=== PATIENT | female | born 1975 | race Two or more races ===

== ENCOUNTER 2018-02-28 11:47 | Emergency (ER) | payer SELFPAY ==
[2018-02-28 12:29] LABS: URINE HCG POC HCG NEGATIVE (Negative)
[2018-02-28 12:31] LABS: BASO # 0.1 x10^3/uL (0.0-0.2); BASO % 1 % (0-3); EOS % 0 % (0-3); HEMATOCRIT 39.1 % (36.0-47.0); HEMOGLOBIN 13.5 g/dL (12.0-15.5); LYMPH # 1.3 x10^3/uL (1.0-4.8); LYMPH % 10 % (24-48); MEAN CORPUSCULAR HEMOGLOBIN 30 pg (25-35); MEAN CORPUSCULAR HGB CONC 35 g/dL (31-37); MEAN CORPUSCULAR VOLUME 86 fL (79-100); MONO # 0.4 x10^3/uL (0.0-1.1); MONO % 3 % (0-9); NEUT # 11.5 x10^3uL (1.8-7.7); NEUT % 87 % (31-73); PLATELET COUNT 278 x10^3/uL (140-400); RED BLOOD COUNT 4.54 x10^6/uL (3.50-5.40); RED CELL DISTRIBUTION WIDTH 15.1 % (11.5-14.5); WHITE BLOOD COUNT 13.2 x10^3/uL (4.0-11.0)
[2018-02-28 12:32] LABS: ADD MAN DIFF? YES
[2018-02-28 12:34] LABS: BILIRUBIN,URINE SMALL (NEG); CLARITY,URINE CLEAR; COLOR,URINE AMBER; GLUCOSE,URINE NEGATIVE (NEG); NITRITE,URINE NEGATIVE (NEG); PH,URINE 6.5; PROTEIN,URINE 30 mg/dL (NEG-TRACE); UROBILINOGEN,URINE 0.2 mg/dL (0.2 mg/dL)
[2018-02-28 12:38] LABS: ANION GAP 10 (6-14); BLOOD UREA NITROGEN 12 mg/dL (7-20); BUN/CREATININE RATIO 17 (6-20); CARBON DIOXIDE 24 mmol/L (21-32); CHLORIDE 104 mmol/L (98-107); CREATININE 0.7 mg/dL (0.6-1.0); GFR 92.2; GLUCOSE 124 mg/dL (70-99); POTASSIUM 4.3 mmol/L (3.5-5.1); SODIUM 138 mmol/L (136-145)
[2018-02-28 12:42] LABS: BACTERIA,URINE MODERATE /HPF (0-FEW); HYALINE CASTS, URINE OCCASIONAL /HPF; SQUAMOUS EPITHELIAL CELL,UR MOD /LPF
[2018-02-28 12:44] LABS: ALBUMIN 3.7 g/dL (3.4-5.0); ALBUMIN/GLOBULIN RATIO 0.9 (1.0-1.7); ALK PHOS 88 U/L (46-116); ALT (SGPT) 43 U/L (14-59); AST (SGOT) 13 U/L (15-37); LIPASE 70 U/L (73-393); TOTAL BILIRUBIN 0.4 mg/dL (0.2-1.0); TOTAL PROTEIN 7.8 g/dL (6.4-8.2)
[2018-02-28] MEDS: ONDANSETRON PF 4 MG/2 ML VIAL. IV (12:47)
[2018-02-28] MEDS: IV NORMAL SALINE 1000ML BAG 1,000 ML IV (12:47)
[2018-02-28 12:51] LABS: TROPONINI < 0.017 ng/mL (0.000-0.055)
[2018-02-28 13:08] LABS: % BANDS 3 % (0-9); % BASOS 1 % (0-3); % LYMPHS 7 % (24-48); % MONOS 5 % (0-10); % SEGS 84 % (35-66)
[2018-02-28 13:10] LABS: PLT ESTIMATE ADEQUATE (ADEQUATE)
[2018-02-28 13:11] LABS: POLYCHROMASIA SLIGHT
[2018-02-28] MEDS: IOHEXOL 300 MG/ML 100ML VIAL. IV (13:12)
[2018-02-28] MEDS ORDERED: CONTRAST GIVEN MC (13:15)
== END 2018-02-28 14:42 | disposition home or self-care (01) ==
LOC: ER 11:47
DX: N39.0 Urinary tract infection, site not specified (principal); R11.2 Nausea with vomiting, unspecified; R19.7 Diarrhea, unspecified; R53.1 Weakness
CPT/HCPCS: 36415; 74177; 80053; 81001; 81025; 83690; 84484; 84702; 85007; 85025; 87086; 93005; 96361; 96374; 99285-25; J2405; J7030; Q9967

== ENCOUNTER 2020-04-06 14:49 | Emergency (ER) | payer SELFPAY ==
[~2020-04-06] VITALS: Ht 167.6 cm; Wt 117.0 kg
[~2020-04-06 14:49] MED LIST: CIPR500T94 PO; ONDA4TAB10 SL
[2020-04-06] MEDS ORDERED: ONDANSETRON PF 4 MG/2 ML VIAL. IV ONE (15:30)
[2020-04-06] MEDS ORDERED: KETOROLAC 15 MG/ML VIAL. IV ONE (15:30)
[2020-04-06] MEDS ORDERED: IV NORMAL SALINE 1000ML BAG 1,000 ML IV ONE ×2 (15:30→16:15)
[2020-04-06 15:45] LABS: COLOR,URINE RED
[2020-04-06 15:51] LABS: CLARITY,URINE HAZY
[2020-04-06 15:54] LABS: BACTERIA,URINE MANY /HPF (0-FEW); SQUAMOUS EPITHELIAL CELL,UR MANY /LPF
[2020-04-06 16:08] LABS: BASO % 0 % (0-3); EOS % 0 % (0-3); HEMOGLOBIN 11.9 g/dL (12.0-15.5); LYMPH # 0.6 x10^3/uL (1.0-4.8); LYMPH % 14 % (24-48); MEAN CORPUSCULAR HEMOGLOBIN 31 pg (25-35); MEAN CORPUSCULAR HGB CONC 35 g/dL (31-37); MEAN CORPUSCULAR VOLUME 89 fL (79-100); MONO # 0.2 x10^3/uL (0.0-1.1); MONO % 6 % (0-9); NEUT % 80 % (31-73); PLATELET COUNT 163 x10^3/uL (140-400); RED BLOOD COUNT 3.82 x10^6/uL (3.50-5.40); RED CELL DISTRIBUTION WIDTH 13.9 % (11.5-14.5); WHITE BLOOD COUNT 3.8 x10^3/uL (4.0-11.0)
[2020-04-06] MEDS ORDERED: cefTRIAXone IV Push 1 GM VIAL. IVP ONE (16:15)
[2020-04-06 16:31] LABS: CALCIUM 7.6 mg/dL (8.5-10.1); CREATININE 0.9 mg/dL (0.6-1.0); GFR 68.3; POTASSIUM 3.2 mmol/L (3.5-5.1)
[2020-04-06 16:45] VITALS: BP 118/60
[2020-04-06] MEDS ORDERED: HYDROcodone/APAP 5/325MG 1 TAB TABLET PO ONE (17:00)
[2020-04-06] MEDS ORDERED: CIPR500T94 PO (17:01)
[2020-04-06] MEDS ORDERED: ONDA-84 PO (17:01)
--- NOTE | 2020-04-06 17:02 | PHYS DOC ---
Past Medical History Past Medical History: UTI, Other Additional Past Medical Histor: pre-diabetes Past Surgical History: Cholecystectomy, Other Additional Past Surgical Histo: L. EYE Smoking Status: Never Smoker Alcohol Use: None Drug Use: None General Adult EDM: Chief Complaint: MULTIPLE COMPLAINTS HPI: HPI: Patient is a 45 year old female, accompanied by her daughter, who presents the emergency department with complaints of pain with urination for the last 3 days. Patient also complains of nausea, vomiting, and back pain that began yesterday. She states she has vomited 3 times in the last 24 hours. She denies any hematemesis, hematuria, difficulty urinating, fever, cough, shortness of breath, chest pain, or diarrhea. The patient complains of a headache that started after she was vomiting. She currently rates her pain a 5 out of 10 on a pain scale, she is tried taking Tylenol for the pain with no relief in her discomfort. She denies any radiation of the pain and any exacerbating factors. She reports that her son tested positive for COVID-19 2 weeks ago but they have been practicing quarantine at home and she has not been in close contact with him. Review of Systems: Review of Systems: Complete review of systems negative unless otherwise documented in the HPI Heart Score: Risk Factors: Risk Factors: DM, Current or recent (<one month) smoker, HTN, HLP, family history of CAD, obesity. Risk Scores: Score 0 - 3: 2.5% MACE over next 6 weeks - Discharge Home Score 4 - 6: 20.3% MACE over next 6 weeks - Admit for Clinical Observation Score 7 - 10: 72.7% MACE over next 6 weeks - Early Invasive Strategies Current Medications: Current Medications Medications (Trade) Dose Ordered Sig/[facility] Start Time Stop Time Status Last Admin Dose Admin Ceftriaxone Sodium (Rocephin) 1 gm 1X ONCE 04/06/20 16:15 04/06/20 16:16 DC Ketorolac Tromethamine (Toradol 15mg Vial) 15 mg 1X ONCE 04/06/20 15:30 04/06/20 15:35 DC 04/06/20 16:13 15 MG Ondansetron HCl (Zofran) 4 mg 1X ONCE 04/06/20 15:30 04/06/20 15:35 DC 04/06/20 16:13 4 MG Sodium Chloride 1,000 ml @ 1,000 mls/hr 1X ONCE 04/06/20 16:15 04/06/20 17:14 Cancel Allergies: Allergies: Allergies Coded Allergies Type Severity Reaction Last Updated Verified No Known Drug Allergies 02/28/18 No Physical Exam: PE: Constitutional: Well developed, well nourished, no acute distress, non-toxic appearance, obese. [] HENT: Normocephalic, atraumatic, bilateral external ears normal, oropharynx moist, no oral exudates, nose normal. [] Eyes: PERRLA, EOMI, conjunctiva normal, no discharge. [] Neck: Normal range of motion, no stridor. [] Cardiovascular:Heart rate regular rhythm, no murmur [] Lungs & Thorax: Respirations even and unlabored, no retractions, no respiratory distress Abdomen: Bowel sounds normal, soft, no tenderness Skin: Warm, dry, no erythema, no rash. [] Back: Bilateral CVA tenderness. [] Extremities: No cyanosis, no clubbing, ROM intact, no edema. [] Neurologic: Alert and oriented X 3, no focal deficits noted. [] Psychologic: Affect normal, judgement normal, mood normal. [] Current Patient Data: Labs: Laboratory Tests Test 04/06/20 15:30 04/06/20 15:53 Urine Collection Type Unknown Urine Color Red Urine Clarity Hazy Urine pH (<5.0-8.0) Urine Specific Al[place] (1.000-1.030) Urine Protein mg/dL (NEG-TRACE) Urine Glucose (UA) mg/dL (NEG) Urine Ketones (Stick) mg/dL (NEG) Urine Blood (NEG) Urine Nitrite (NEG) Urine Bilirubin (NEG) Urine Urobilinogen Dipstick mg/dL (0.2 mg/dL) Urine Leukocyte Esterase (NEG) Urine RBC 11-20 /HPF (0-2) Urine WBC 11-20 /HPF (0-4) Urine Squamous Epithelial Cells Many /LPF Urine Bacteria Many /HPF (0-FEW) Urine Mucus Mod /LPF White Blood Count 3.8 x10^3/uL (4.0-11.0) L Red Blood Count 3.82 x10^6/uL (3.50-5.40) Hemoglobin 11.9 g/dL (12.0-15.5) L Hematocrit 34.0 % (36.0-47.0) L Mean Corpuscular Volume 89 fL (79-100) Mean Corpuscular Hemoglobin 31 pg (25-35) Mean Corpuscular Hemoglobin Concent 35 g/dL (31-37) Red Cell Distribution Width 13.9 % (11.5-14.5) Platelet Count 163 x10^3/uL (140-400) Neutrophils (%) (Auto) 80 % (31-73) H Lymphocytes (%) (Auto) 14 % (24-48) L Monocytes (%) (Auto) 6 % (0-9) Eosinophils (%) (Auto) 0 % (0-3) Basophils (%) (Auto) 0 % (0-3) Neutrophils # (Auto) 3.0 x10^3/uL (1.8-7.7) Lymphocytes # (Auto) 0.6 x10^3/uL (1.0-4.8) L Monocytes # (Auto) 0.2 x10^3/uL (0.0-1.1) Eosinophils # (Auto) 0.0 x10^3/uL (0.0-0.7) Basophils # (Auto) 0.0 x10^3/uL (0.0-0.2) Sodium Level 141 mmol/L (136-145) Potassium Level 3.2 mmol/L (3.5-5.1) L Chloride Level 104 mmol/L (98-107) Carbon Dioxide Level 29 mmol/L (21-32) Anion Gap 8 (6-14) Blood Urea Nitrogen 9 mg/dL (7-20) Creatinine 0.9 mg/dL (0.6-1.0) Estimated GFR (Cockcroft-Gault) 68.3 Glucose Level 107 mg/dL (70-99) H Calcium Level 7.6 mg/dL (8.5-10.1) L Laboratory Tests 04/06/20 15:53 Laboratory Tests 04/06/20 15:53 Vital Signs: Vital Signs Date Time Temp Pulse Resp B/P (MAP) Pulse Ox O2 Delivery O2 Flow Rate FiO2 04/06/20 15:55 59 20 121/59 (79) 95 Room Air 04/06/20 14:53 97.8 97.8 EKG: EKG: [] Radiology/Procedures: Radiology/Procedures: [] Course & Med Decision Making: Course & Med Decision Making Pertinent Labs and Imaging studies reviewed. (See chart for details) 45-year-old female presented to the emergency department with complaints of dysuria, headache, pain. [CBC revealed a hemoglobin of 11.9, hematocrit of 34, otherwise unremarkable; BMP revealed a potassium of 3.2, glucose of 107, calcium of 7.6 otherwise unremarkable; urinalysis was concerning for a urinary tract infection with 11-20 red blood cells and 11-20 white blood cells, many bacteria present. The patient was given 1 g of IV Rocephin, 15 mg of Toradol, 4 more milligrams of Zofran, a liter of normal saline, and 1 hydrocodone. She reported feeling better after these medications. Prescription was written for ciprofloxacin 500 mg p.o. twice daily x7 days. The patient was encouraged to take medication as prescribed, increase clear fluids, and avoid bladder irritants. Patient and her daughter verbalized an understanding of home care, medications, follow-up, and return to ED instructions and were in agreement with the plan of care. Rhonda Disclaimer: Rhonda Disclaimer: This electronic medical record was generated, in whole or in part, using a voice recognition dictation system. Departure Departure Impression: Primary Impression: Pyelonephritis Additional Impression: Headache Qualified Codes: R51 - Headache Disposition: 01 HOME, SELF-CARE Condition: STABLE Referrals: UNKNOWN PCP NAME (PCP) Patient Instructions: General Headache Without Cause, [id number], Pyelonephritis, Adult, [id number] Additional Instructions: Fill prescription(s) and use as directed. Avoid bladder irritants such as caff eine, carbonation, and spicy foods. Increase clear fluids. Follow up with your primary care doctor if symptoms persist, return to the ER if symptoms worsen. Scripts Ondansetron Hcl (ONDANSETRON HCL) 4 Mg Tablet 1 TAB PO PRN Q6HRS PRN for NAUSEA/VOMITING for 3 Days, #10 TAB 0 Refills Prov: LEXX CLARKE APRN 04/06/20 Ciprofloxacin Hcl (CIPRO) 500 Mg Tablet 1 TAB PO BID for 7 Days, #14 TAB 0 Refills Prov: LEXX CLARKE APRN 04/06/20 Justicifation of Admission Dx: Justifications for Admission: Justification of Admission Dx: N/A LEXX CLARKE PRODUCT TECHNOLOGY SCIENTIST Apr 06, 2020 17:01
== END 2020-04-06 17:38 | disposition home or self-care (01) ==
LOC: ER 14:49
DX: N12 Tubulo-interstitial nephritis, not specified as acute or chronic (principal); R51 Headache; R11.2 Nausea with vomiting, unspecified; M54.5 Low back pain; R30.9 Painful micturition, unspecified; Z90.49 Acquired absence of other specified parts of digestive tract; Z98.890 Other specified postprocedural states; Z79.899 Other long term (current) drug therapy
CPT/HCPCS: 36415; 80048; 81001; 85025; 87086; 96361; 96374; 96375; 99284; J0696; J1885; J2405; J7030

== ENCOUNTER 2022-01-19 03:39 | Inpatient (IN) | payer SELFPAY ==
[~2022-01-19] VITALS: Ht 165.1 cm; Wt 117.0 kg
[2022-01-19] VITALS (16 sets, daily range): BP systolic 115–146; BP diastolic 57–70
[~2022-01-19 03:39] MED LIST changes: +ONDA-84 PO
[2022-01-19 04:13] LABS: BASO % 1 % (0-3); EOS # 0.1 x10^3/uL (0.0-0.7); EOS % 2 % (0-3); HEMOGLOBIN 11.5 g/dL (12.0-15.5); LYMPH # 1.8 x10^3/uL (1.0-4.8); LYMPH % 23 % (24-48); MEAN CORPUSCULAR HEMOGLOBIN 30 pg (25-35); MEAN CORPUSCULAR HGB CONC 34 g/dL (31-37); MEAN CORPUSCULAR VOLUME 87 fL (79-100); MONO # 0.5 x10^3/uL (0.0-1.1); MONO % 6 % (0-9); NEUT # 5.6 x10^3/uL (1.8-7.7); NEUT % 69 % (31-73); PLATELET COUNT 216 x10^3/uL (140-400); RED BLOOD COUNT 3.91 x10^6/uL (3.50-5.40); RED CELL DISTRIBUTION WIDTH 14.9 % (11.5-14.5); WHITE BLOOD COUNT 8.1 x10^3/uL (4.0-11.0)
[2022-01-19] MEDS ORDERED: MORPHINE SULFATE 2 MG/ML INJ. IVP ONE ×2 (04:15→04:45)
[2022-01-19] MEDS ORDERED: ASPIRIN CHEWABLE 81 MG TABLET. PO ONE (04:15)
[2022-01-19 04:22] LABS: CALCIUM 8.4 mg/dL (8.5-10.1); CREATININE 0.7 mg/dL (0.6-1.0); GFR 90.9; POTASSIUM 3.5 mmol/L (3.5-5.1)
[2022-01-19 04:28] LABS: ALBUMIN 3.4 g/dL (3.4-5.0); ALBUMIN/GLOBULIN RATIO 1.1 (1.0-1.7); TOTAL BILIRUBIN 0.4 mg/dL (0.2-1.0); TOTAL PROTEIN 6.5 g/dL (6.4-8.2)
[2022-01-19] MEDS ORDERED: IOHEXOL 350 MG/ML 100 ML VIAL. IV ONE (04:30)
[2022-01-19] MEDS ORDERED: CONTRAST GIVEN. MC PRN (04:30)
[2022-01-19] MEDS ORDERED: HEPARIN 25,000UTS/250ML PREMIX 250 ML IV PRN (04:45)
[2022-01-19] MEDS ORDERED: IV NORMAL SALINE 1000ML BAG 1,000 ML IV ONE (04:45)
[2022-01-19] MEDS ORDERED: HEPARIN for IV BOLUS 10,000 UNIT/10 ML VIAL. IV ONE (04:45)
[2022-01-19] MEDS ORDERED: HEPARIN for IV BOLUS 10,000 UNIT/10 ML VIAL. IV PRN (04:45)
[2022-01-19] MEDS: NITROGLYCERIN SUBLINGUAL 0.4 MG BOTTLE OF 25. SL PRN ×3 (04:48→05:47)
[2022-01-19 05:05] LABS: PREG TEST PT QUAL NEGATIVE (NEG)
[2022-01-19] MEDS ORDERED: ONDANSETRON PF 4 MG/2 ML VIAL. IVP PRN ×2 (05:30→09:45)
[2022-01-19] MEDS ORDERED: MORPHINE SULFATE 2 MG/ML INJ. IVP PRN (05:30)
[2022-01-19] MEDS ORDERED: NITROGLYCERIN PREMIX 250 ML IV ONE (05:45)
--- NOTE | 2022-01-19 06:00 | RAD ---
CT angiography chest with contrast PQRS statement: CT scans at this facility use dose reduction including either automated exposure cont rol, iterative reconstructions, and /or weight based radiation dosing via mA and kV modification when appropriate to reduce radiation dose to as low as reasonably achievable. HISTORY: Chest pain radiating to the back and upper extremities. Contrast: 100 mL Omnipaque 300 intravenous contrast with 3-D MIP reconstructions of the arteries acqu ired. FINDINGS: Heart size upper limits of normal. Aorta and esophagus are normal. No adenopathy in the avis st. No pulmonary artery emboli. Miniscule dependent pleural effusions along the posterior diaphragms. Trachea and bronchi are normal. There is mild discoid atelectasis at the lung bases. At the right up per lobe there is a 6 mm groundglass nodule image 30. Bones are unremarkable. IMPRESSION: 1. No pulmonary artery emboli. 2. Tiny dependent subcentimeter pleural effusions along the posterior diaphragms, etiology of which i s indeterminate. Similar sized pleural effusions were present on CT abdomen imaging in 2018. 3. 6 mm groundglass pulmonary nodule at the right upper lobe. Per Fleischner guidelines follow-up CT chest imaging in 3-6 months is advised. Electronically signed by: Gabino Connolly MD (01/19/2022 5:58 AM) [facility]USFREDO
--- NOTE | 2022-01-19 06:01 | PHYS DOC ---
Past Medical History Past Medical History: UTI, Other Additional Past Medical Histor: pre-diabetes Past Surgical History: Cholecystectomy Additional Past Surgical Histo: L. EYE Smoking Status: Never Smoker Alcohol Use: None Drug Use: None Adult General Chief Complaint Chief Complaint: CHEST PAIN HPI HPI The patient is a 46-year-old female with a history of hyperlipidemia and morbid obesity. She is a non-smoker and has no known cardiac history. She presents for evaluation of retrosternal nonreproducible chest discomfort with onset at 1 AM, about 2 hours prior to arrival, awakening her from sleep. Discomfort radiates to the interscapular back into the bilateral arms. Severity 8 out of 10 at present. Discomfort is nonexertional nonpleuritic. Nothing seems to make it better or worse. Patient had an episode of identical discomfort 2 weeks ago which she managed at home with Tylenol and for which she did not seek care. This resolved after about a day. Associated nausea without vomiting. No associated fevers, upper respiratory congestion/rhinorrhea, cough, sore throat, shortness of breath, abdominal pain of any kind, flank pain, dysuria, hematuria, polyuria or oliguria, changes in bowel habits, pain or swelling to arms or legs. Patient is alert, pleasantly and appropriately interactive and in no acute distress with appropriate vital signs upon initial evaluation here in the emergency department. Triage EKG is nonischemic. Review of Systems Review of Systems A 12 point review of systems was completed and was negative except where noted in HPI above. Current Medications Current Medications Current Medications Medications (Trade) Dose Ordered Sig/Jyotsna Start Time Stop Time Status Last Admin Dose Admin Aspirin (Aspirin Chewable) 324 mg 1X ONCE 01/19/22 04:15 01/19/22 04:16 DC 01/19/22 04:29 324 MG Info (CONTRAST GIVEN -- Rx MONITORING) 1 each PRN DAILY PRN 01/19/22 04:30 01/21/22 04:29 Iohexol (Omnipaque 350 Mg/ml) 100 ml 1X ONCE 01/19/22 04:30 01/19/22 04:31 DC 01/19/22 05:30 100 ML Morphine Sulfate (Morphine Sulfate) 2 mg 1X ONCE 01/19/22 04:15 01/19/22 04:16 DC 01/19/22 04:29 2 MG Allergies Allergies Allergies Coded Allergies Type Severity Reaction Last Updated Verified No Known Drug Allergies 01/19/22 No Physical Exam Physical Exam 46-year-old female appearing nontoxic and in no acute distress. Head is normocephalic and atraumatic. Neck is supple and nontender. Oropharynx is moist. Lungs are clear to auscultation at all stations. There is normal S1 and S2 without rubs or gallops and capillary refill is appropriate, less than 2 seconds globally. Abdomen is soft, nontender and nondistended without pulsatile mass. Skin is warm and dry without cyanosis, clubbing or edema. Psychiatrically, the patient demonstrates appropriate mood and affect and is alert. Evaluation of the extremities reveals BUEs and BLEs neurovascularly intact distally with strength 5 out of 5, sensation intact light touch in all nerve distributions, radial, DP and PT pulses 2+ and equal bilaterally, capillary refill less than 2 seconds, hands and feet warm and well-perfused. No dependent peripheral edema distally. No calf tenderness swelling bilaterally. Homans test is negative bilaterally. Current Patient Data Vital Signs Vital Signs Date Time Temp Pulse Resp B/P (MAP) Pulse Ox O2 Delivery O2 Flow Rate FiO2 01/19/22 04:29 20 99 Room Air 01/19/22 03:40 97.9 62 143/72 (95) 97.9 Lab Values Laboratory Tests Test 01/19/22 03:59 White Blood Count 8.1 x10^3/uL (4.0-11.0) Red Blood Count 3.91 x10^6/uL (3.50-5.40) Hemoglobin 11.5 g/dL (12.0-15.5) L Hematocrit 34.0 % (36.0-47.0) L Mean Corpuscular Volume 87 fL (79-100) Mean Corpuscular Hemoglobin 30 pg (25-35) Mean Corpuscular Hemoglobin Concent 34 g/dL (31-37) Red Cell Distribution Width 14.9 % (11.5-14.5) H Platelet Count 216 x10^3/uL (140-400) Neutrophils (%) (Auto) 69 % (31-73) Lymphocytes (%) (Auto) 23 % (24-48) L Monocytes (%) (Auto) 6 % (0-9) Eosinophils (%) (Auto) 2 % (0-3) Basophils (%) (Auto) 1 % (0-3) Neutrophils # (Auto) 5.6 x10^3/uL (1.8-7.7) Lymphocytes # (Auto) 1.8 x10^3/uL (1.0-4.8) Monocytes # (Auto) 0.5 x10^3/uL (0.0-1.1) Eosinophils # (Auto) 0.1 x10^3/uL (0.0-0.7) Basophils # (Auto) 0.0 x10^3/uL (0.0-0.2) Prothrombin Time 13.0 SEC (11.7-14.0) Prothrombin Time INR 1.0 (0.8-1.1) Activated Partial Thromboplast Time 28 SEC (24-38) Sodium Level 138 mmol/L (136-145) Potassium Level 3.5 mmol/L (3.5-5.1) Chloride Level 101 mmol/L (98-107) Carbon Dioxide Level 29 mmol/L (21-32) Anion Gap 8 (6-14) Blood Urea Nitrogen 12 mg/dL (7-20) Creatinine 0.7 mg/dL (0.6-1.0) Estimated GFR (Cockcroft-Gault) 90.9 BUN/Creatinine Ratio 17 (6-20) Glucose Level 109 mg/dL (70-99) H Calcium Level 8.4 mg/dL (8.5-10.1) L Total Bilirubin 0.4 mg/dL (0.2-1.0) Aspartate Amino Transferase (AST) 14 U/L (15-37) L Alanine Aminotransferase (ALT) 51 U/L (14-59) Alkaline Phosphatase 67 U/L (46-116) Troponin I High Sensitivity 212 ng/L (4-50) H CK-Msd-B-Type Natriuretic Peptide 114 pg/mL (0-124) Total Protein 6.5 g/dL (6.4-8.2) Albumin 3.4 g/dL (3.4-5.0) Albumin/Globulin Ratio 1.1 (1.0-1.7) Serum Test, Qualitative Negative (NEG) Laboratory Tests 01/19/22 03:59 Laboratory Tests 01/19/22 03:59 EKG EKG Sinus rhythm, rate 56, no acute ST elevation or depression, first-degree AV block, SD 234, QRS 92, QTc 398, EP interpretation. Nonischemic tracing. Repeat EKG with sinus rhythm, rate 58, no acute ST elevation or depression, first-degree AV block, SD 222, QRS 94, QTc 368, EP interpretation. Nonischemic tracing. Radiology/Procedures Radiology/Procedures [] Course & Med Decision Making Course & Med Decision Making Labs remarkable for elevated high-sensitivity troponin, in context likely reflective of type I NSTEMI. Heparin started. Full-strength aspirin given on arrival. Nitroglycerin and morphine given for discomfort. We have not gotten good control of discomfort so will initiate a nitroglycerin drip. Case discussed with Dr. Abrams of cardiology who agrees with management thus far and plans to see the patient urgently and plans probable cath. Vital signs remain appropriate. Patient and family updated and all questions have been answered. Graciously accepted for admission by Dr. Corbett. Critical care time was 47 minutes for non-ST elevation myocardial infarction. Dragon Disclaimer Dragon Disclaimer This electronic medical record was generated, in whole or in part, using a voice recognition dictation system. Departure Departure Impression: Primary Impression: NSTEMI (non-ST elevated myocardial infarction) Disposition: ADMITTED INPATIENT Condition: GUARDED Referrals: UNKNOWN PCP NAME (PCP) KATELYN MOSES MD Jan 19, 2022 06:01
--- NOTE | 2022-01-19 06:58 | EKG ---
[facility] [address] [place] [address] Test Date: 2022-01-19 Test Time: 05:39:23 Pat Name: REMIGIO ROLLE Department: Room: 1 Gender: F Fingerprinter: : [id number] Requested By: KATELYN MOSES Order Number: [id number] Reading MD: Basilio Roman Measurements Intervals [place] Rate: 58 P: 24 SC: 222 QRS: -22 QRSD: 94 T: 72 QT: 372 QTc: 368 Interpretive Statements SINUS RHYTHM PROLONGED SC INTERVAL LEFTWARD AXIS ST & T ABNORMALITY, CONSIDER HIGH LATERAL ISCHEMIA OR LEFT VENTRICULAR STRAIN Electronically Signed On 01-20-2022 18:13:45 CDT by Basilio Roman
[2022-01-19] MEDS ORDERED: ZOLPIDEM 5 MG TABLET. PO PRN (09:45)
[2022-01-19] MEDS ORDERED: ELECTROLYTE (NON-ICU) PROTOCOL. MC PRN (09:45)
[2022-01-19] MEDS ORDERED: MORPHINE SULFATE 2 MG/ML INJ. IV PRN ×2 (09:45→10:00)
[2022-01-19] MEDS ORDERED: ACETAMINOPHEN 325 MG TABLET. PO PRN (09:45)
[2022-01-19] MEDS ORDERED: CALCIUM CARBONATE 500 MG TAB.CHEW PO PRN (09:45)
--- NOTE | 2022-01-19 10:56 | PDOC2 ---
JONH HOLT PAPER REWINDER OPERATOR 01/19/22 1056: CARDIAC CONSULT DATE OF CONSULT Date of Consult DATE: 01/19/22 TIME: 10:53 REASON FOR CONSULT Reason for Consult: NSTEMI REFERRING PHYSICIAN Referring Physician: Dr. Mullins SOURCE Source: Chart review, Patient HISTORY OF PRESENT ILLNESS HISTORY OF PRESENT ILLNESS This is a 46 yo female who presented secondary to chest pain. Patient reports she woke up this morning about 1 am with pain in her bilateral arms from her elbow down. Was also tinging. Then developed intense burning sensation in her central chest. Radiated through to her back. Mild nausea. No shortness of shannon ath, dizziness, diaphoresis, or shortness of breath. Reports similar pain about 3 weeks ago. Took 2 ASA, which resolved pain. Also reports chest pain when going up stairs for the last couple of weeks. Denies any history of CAD or GERD. No previous cardiac workup. PAST MEDICAL HISTORY Cardiovascular: Hyperlipidemia Musculoskeletal: Osteoarthritis Endocrine: Other (obesity ) PAST SURGICAL HISTORY Past Surgical History: Cholecystectomy FAMILY HISTORY Family History: Heart Disease SOCIAL HISTORY Smoke: No ALCOHOL: none Drugs: None Lives: with Family CURRENT MEDICATIONS CURRENT MEDICATIONS Current Medications Medications (Trade) Dose Ordered Sig/Jyotsna Route PRN Reason Start Time Stop Time Status Last Admin Dose Admin Aspirin (Aspirin Chewable) 324 mg 1X ONCE PO 01/19/22 04:15 01/19/22 04:16 DC 01/19/22 04:29 Morphine Sulfate (Morphine Sulfate) 2 mg 1X ONCE IVP 01/19/22 04:15 01/19/22 04:16 DC 01/19/22 04:29 Iohexol (Omnipaque 350 Mg/ml) 100 ml 1X ONCE IV 01/19/22 04:30 01/19/22 04:31 DC 01/19/22 05:30 Sodium Chloride 1,000 ml @ 1,000 mls/hr 1X ONCE IV 01/19/22 04:45 01/19/22 05:44 DC 01/19/22 04:54 Nitroglycerin (Nitrostat) 0.4 mg PRN Q5MIN PRN SL CHEST PAIN 01/19/22 04:45 01/19/22 05:47 Morphine Sulfate (Morphine Sulfate) 2 mg 1X ONCE IVP 01/19/22 04:45 01/19/22 04:46 DC 01/19/22 04:53 Heparin Sodium (Porcine) (Heparin Sodium) 4,000 unit 1X ONCE IV 01/19/22 04:45 01/19/22 04:46 DC 01/19/22 04:51 Heparin Sodium/ Dextrose 250 ml @ 14.172 mls/ hr CONT PRN IV PER PROTOCOL 01/19/22 04:45 01/19/22 06:02 Ondansetron HCl (Zofran) 4 mg PRN Q8HRS PRN IVP NAUSEA/VOMITING 01/19/22 05:30 01/19/22 09:58 DC 01/19/22 05:46 Nitroglycerin/ Dextrose 250 ml @ 1.5 mls/hr 1X ONCE IV 01/19/22 05:45 01/26/22 04:24 01/19/22 06:07 ALLERGIES ALLERGIES: Coded Allergies: No Known Drug Allergies (Unverified , 01/19/22) ROS Review of System 14 point ROS conducted with pertinent positives noted above in HPI PHYSICAL EXAM General: Alert, Oriented X3, Cooperative, No acute distress HEENT: Atraumatic Lungs: Clear to auscultation Heart: Regular rate Abdomen: Soft, No tenderness Extremities: No edema Skin: No breakdown, No significant lesion Neuro: Normal speech, Normal tone Psych/Mental Status: Mental status NL, Mood NL MUSCULOSKELETAL: Osteoarthritic changes both hands VITALS/I&O VITALS/I&O: Vital Signs Date Time Temp Pulse Resp B/P (MAP) Pulse Ox O2 Delivery O2 Flow Rate FiO2 01/19/22 08:00 2.0 01/19/22 06:15 97.4 54 16 146/70 (95) 94 Room Air 97.4 I & O 01/18/22 01/18/22 01/19/22 15:00 23:00 07:00 Intake Total 0 ml Output Total 0 ml Balance 0 ml LABS Lab: Laboratory Tests Test 01/19/22 03:59 01/19/22 07:05 01/19/22 10:00 White Blood Count 8.1 x10^3/uL (4.0-11.0) Red Blood Count 3.91 x10^6/uL (3.50-5.40) Hemoglobin 11.5 g/dL (12.0-15.5) L Hematocrit 34.0 % (36.0-47.0) L Mean Corpuscular Volume 87 fL (79-100) Mean Corpuscular Hemoglobin 30 pg (25-35) Mean Corpuscular Hemoglobin Concent 34 g/dL (31-37) Red Cell Distribution Width 14.9 % (11.5-14.5) H Platelet Count 216 x10^3/uL (140-400) Neutrophils (%) (Auto) 69 % (31-73) Lymphocytes (%) (Auto) 23 % (24-48) L Monocytes (%) (Auto) 6 % (0-9) Eosinophils (%) (Auto) 2 % (0-3) Basophils (%) (Auto) 1 % (0-3) Neutrophils # (Auto) 5.6 x10^3/uL (1.8-7.7) Lymphocytes # (Auto) 1.8 x10^3/uL (1.0-4.8) Monocytes # (Auto) 0.5 x10^3/uL (0.0-1.1) Eosinophils # (Auto) 0.1 x10^3/uL (0.0-0.7) Basophils # (Auto) 0.0 x10^3/uL (0.0-0.2) Prothrombin Time 13.0 SEC (11.7-14.0) Prothrombin Time INR 1.0 (0.8-1.1) Activated Partial Thromboplast Time 28 SEC (24-38) Sodium Level 138 mmol/L (136-145) Potassium Level 3.5 mmol/L (3.5-5.1) Chloride Level 101 mmol/L (98-107) Carbon Dioxide Level 29 mmol/L (21-32) Anion Gap 8 (6-14) Blood Urea Nitrogen 12 mg/dL (7-20) Creatinine 0.7 mg/dL (0.6-1.0) Estimated GFR (Cockcroft-Gault) 90.9 BUN/Creatinine Ratio 17 (6-20) Glucose Level 109 mg/dL (70-99) H Calcium Level 8.4 mg/dL (8.5-10.1) L Total Bilirubin 0.4 mg/dL (0.2-1.0) Aspartate Amino Transferase (AST) 14 U/L (15-37) L Alanine Aminotransferase (ALT) 51 U/L (14-59) Alkaline Phosphatase 67 U/L (46-116) Troponin I High Sensitivity 212 ng/L (4-50) H 625 ng/L (4-50) H 980 ng/L (4-50) H QP-Rcv-X-Type Natriuretic Peptide 114 pg/mL (0-124) Total Protein 6.5 g/dL (6.4-8.2) Albumin 3.4 g/dL (3.4-5.0) Albumin/Globulin Ratio 1.1 (1.0-1.7) Serum Test, Qualitative Negative (NEG) Laboratory Tests 01/19/22 03:59 Laboratory Tests 01/19/22 03:59 ASSESSMENT/PLAN ASSESSMENT/PLAN 1. Chest pain with typical features 2. NSTEMI; trop highest 980. On heparin gtt 3. Hyperlipidemia 4. Obesity Recommendations ASA Continue heparin gtt Lipids Echo Given symptomatology in the setting of NSTEMI, recommend cardiac cath with possible PCI. R/b/a were discussed thoroughly with patient and daughter and they are agreeable Keep NPO. Will proceed with later today DOMINIC SONG MD 01/19/22 1915: CARDIAC CONSULT ASSESSMENT/PLAN ASSESSMENT/PLAN Patient seen and examined. Agree with ROUTE DELIVERY MANAGER's assessment and plan. Patient with CP and NSTEMI Agree with continuing heparin gtt and plan for cardiac cath and possible PCI Risks and benefits explained Thank you for your consultation JONH HOLT APRN Jan 19, 2022 10:56 DOMINIC SONG MD Jan 19, 2022 19:15
[2022-01-19] MEDS ORDERED: fentaNYL PF VIAL 100 MCG/2 ML VIAL ONE (11:27)
[2022-01-19] MEDS ORDERED: VERAPAMIL 5 MG/2 ML VIAL. ONE (11:27)
[2022-01-19] MEDS ORDERED: HEPARIN for IV BOLUS 10,000 UNIT/10 ML VIAL. ONE (11:27)
[2022-01-19] MEDS ORDERED: MIDAZOLAM HCL/PF 2 MG/2 ML VIAL. ONE (11:27)
[2022-01-19] MEDS ORDERED: LIDOCAINE 1% PF 2 ML VIAL. ONE (11:30)
[2022-01-19] MEDS ORDERED: IODIXANOL 320 MG/ML 100 ML VIAL. ONE (11:30)
[2022-01-19] MEDS ORDERED: NITROGLYCERIN 200 MCG/2 ML SYRINGE FOR CATH/VASC LAB. ONE (11:31)
[2022-01-19 11:54] LABS: CHOLESTEROL/HDL RATIO 4.1
[2022-01-19] MEDS ORDERED: HEPARIN for IV BOLUS 10,000 UNIT/10 ML VIAL. IART ONE (12:30)
[2022-01-19] MEDS ORDERED: LIDOCAINE 1% PF 2 ML VIAL. INJ ONE (12:30)
[2022-01-19] MEDS ORDERED: MIDAZOLAM HCL/PF 2 MG/2 ML VIAL. IV ONE (12:30)
[2022-01-19] MEDS ORDERED: fentaNYL PF VIAL 100 MCG/2 ML VIAL IV ONE (12:30)
[2022-01-19] MEDS ORDERED: NITROGLYCERIN 200 MCG/2 ML SYRINGE FOR CATH/VASC LAB. IART ONE (12:30)
[2022-01-19] MEDS ORDERED: IODIXANOL 320 MG/ML 100 ML VIAL. IART ONE (12:30)
[2022-01-19] MEDS ORDERED: VERAPAMIL 5 MG/2 ML VIAL. IART ONE (12:30)
--- NOTE | 2022-01-19 12:36 | NUR ---
SS following for discharge planning. SS reviewed pt chart and discussed with pt RN. Pt is from home with spouse and is currently requiring oxygen at two liters nasal canula. Self pay. Med Assist following. Cardiology following. Heart cath today. SS will continue to follow for discharge planning.
--- NOTE | 2022-01-19 12:53 | PDOC1 ---
History and Physical Date of Service: DOS: DATE: 01/19/22 TIME: 12:53 Chief Complaint: Chief Complain: chest pain History of Present Illness: HPI: The patient is a 46-year-old female with a history of hyperlipidemia and morbid obesity. She is a non-smoker and has no known cardiac history. She presents for evaluation of retrosternal nonreproducible chest discomfort with onset at 1 AM, about 2 hours prior to arrival, awakening her from sleep. Discomfort radiates to the interscapular back into the bilateral arms. Severity 8 out of 10 at present. Discomfort is nonexertional nonpleuritic. Nothing seems to make it better or worse. Patient had an episode of identical discomfort 2 weeks ago which she managed at home with Tylenol and for which she did not seek care. This resolved after about a day. Associated nausea without vomiting. No associated fevers, upper respiratory congestion/rhinorrhea, cough, sore throat, shortness of breath, abdominal pain of any kind, flank pain, dysuria, hematuria, polyuria or oliguria, changes in bowel habits, pain or swelling to arms or legs. Was reporting ongoing chest pain when seen at bedside. Troponins elevated cardiology consulted Past Medical/Surgical History: PMH/PSH: Past Medical History: UTI, Other Additional Past Medical Histor: pre-diabetes Past Surgical History: Cholecystectomy Additional Past Surgical Histo: L. EYE Smoking Status: Never Smoker Alcohol Use: None Drug Use: None Allergies: Allergies: Coded Allergies: No Known Drug Allergies (Unverified , 01/19/22) Family History: Family History: Hypertension Current Medications: Current Medications Current Medications Aspirin (Aspirin Chewable) 324 mg 1X ONCE PO Last administered on 01/19/22at 04:29; Start 01/19/22 at 04:15; Stop 01/19/22 at 04:16; Status DC Morphine Sulfate (Morphine Sulfate) 2 mg 1X ONCE IVP Last administered on 01/19/22at 04:29; Start 01/19/22 at 04:15; Stop 01/19/22 at 04:16; Status DC Iohexol (Omnipaque 350 Mg/ml) 100 ml 1X ONCE IV Last administered on 01/19/22at 05:30; Start 01/19/22 at 04:30; Stop 01/19/22 at 04:31; Status DC Info (CONTRAST GIVEN -- Rx MONITORING) 1 each PRN DAILY PRN MC SEE COMMENTS; Start 01/19/22 at 04:30; Stop 01/21/22 at 04:29 Sodium Chloride 1,000 ml @ 1,000 mls/hr 1X ONCE IV Last administered on 01/19/22at 04:54; Start 01/19/22 at 04:45; Stop 01/19/22 at 05:44; Status DC Nitroglycerin (Nitrostat) 0.4 mg PRN Q5MIN PRN SL CHEST PAIN Last administered on 01/19/22at 05:47; Start 01/19/22 at 04:45 Morphine Sulfate (Morphine Sulfate) 2 mg 1X ONCE IVP Last administered on 01/19/22at 04:53; Start 01/19/22 at 04:45; Stop 01/19/22 at 04:46; Status DC Heparin Sodium (Porcine) (Heparin Sodium) 4,000 unit 1X ONCE IV Last administered on 01/19/22at 04:51; Start 01/19/22 at 04:45; Stop 01/19/22 at 04:46; Status DC Heparin Sodium/ Dextrose 250 ml @ 14.172 mls/ hr CONT PRN IV PER PROTOCOL Last administered on 01/19/22at 06:02; Start 01/19/22 at 04:45 Heparin Sodium (Porcine) (Heparin Sodium) 2,950 unit PRN Q6HRS PRN IV FOR UFH LEVEL LESS THAN 0.2; Start 01/19/22 at 04:45 Ondansetron HCl (Zofran) 4 mg PRN Q8HRS PRN IVP NAUSEA/VOMITING Last administered on 01/19/22at 05:46; Start 01/19/22 at 05:30; Stop 01/19/22 at 09:58; Status DC Morphine Sulfate (Morphine Sulfate) 2 mg PRN Q2HR PRN IVP PAIN; Start 01/19/22 at 05:30; Stop 01/19/22 at 09:58; Status DC Nitroglycerin/ Dextrose 250 ml @ 1.5 mls/hr 1X ONCE IV Last administered on 01/19/22at 06:07; Start 01/19/22 at 05:45; Stop 01/26/22 at 04:24 Ondansetron HCl (Zofran) 4 mg PRN Q6HRS PRN IVP NAUSEA/VOMITING; Start 01/19/22 at 09:45 Calcium Carbonate/ Glycine (Tums) 500 mg PRN Q3HRS PRN PO UPSET STOMACH; Start 01/19/22 at 09:45 Zolpidem Tartrate (Ambien) 5 mg PRN QHS PRN PO INSOMNIA, MAY REPEAT IN 1HR; Start 01/19/22 at 09:45 Info (Non-Icu Electrolyte Protocol) 1 ea PRN DAILY PRN MC SEE COMMENTS; Start 01/19/22 at 09:45 Morphine Sulfate (Morphine Sulfate) 1 mg PRN Q1HR PRN IV PAIN; Start 01/19/22 at 09:45 Morphine Sulfate (Morphine Sulfate) 2 mg PRN Q1HR PRN IV PAIN; Start 01/19/22 at 10:00 Acetaminophen (Tylenol) 650 mg PRN Q6HRS PRN PO Headaches, Temp > 101.5F; Start 01/19/22 at 09:45 Senna/Docusate Sodium (Senna Plus) 1 tab BID PO ; Start 01/19/22 at 21:00 Aspirin (Ecotrin) 81 mg DAILYWBKFT PO ; Start 01/20/22 at 08:00 Midazolam HCl (Versed) 2 mg STK-MED ONCE .ROUTE ; Start 01/19/22 at 11:27; Stop 01/19/22 at 11:27; Status DC Fentanyl Citrate (Fentanyl 2ml Vial) 100 mcg STK-MED ONCE .ROUTE ; Start 01/19/22 at 11:27; Stop 01/19/22 at 11:27; Status DC Verapamil HCl (Verapamil) 5 mg STK-MED ONCE .ROUTE ; Start 01/19/22 at 11:27; Stop 01/19/22 at 11:27; Status DC Heparin Sodium (Porcine) (Heparin Sodium) 10,000 unit STK-MED ONCE .ROUTE ; Start 01/19/22 at 11:27; Stop 01/19/22 at 11:27; Status DC Atorvastatin Calcium (Lipitor) 20 mg QHS PO ; Start 01/19/22 at 21:00 Lidocaine HCl (Xylocaine-Mpf 1% 2ml Vial) 2 ml STK-MED ONCE .ROUTE ; Start 01/19/22 at 11:30; Stop 01/19/22 at 11:30; Status DC Iodixanol (Visipaque 320) 100 ml STK-MED ONCE .ROUTE ; Start 01/19/22 at 11:30; Stop 01/19/22 at 11:30; Status DC Heparin Sodium/ Sodium Chloride 500 ml @ As Directed STK-MED ONCE .ROUTE ; Start 01/19/22 at 11:30; Stop 01/19/22 at 11:30; Status DC Nitroglycerin (Nitroglycerin) 200 mcg STK-MED ONCE .ROUTE ; Start 01/19/22 at 11:31; Stop 01/19/22 at 11:32; Status DC Nitroglycerin (Nitroglycerin) 200 mcg 1X ONCE IART Last administered on 01/19/22at 12:30; Start 01/19/22 at 12:30; Stop 01/19/22 at 12:32; Status DC Verapamil HCl (Verapamil) 2.5 mg 1X ONCE IART Last administered on 01/19/22at 12:30; Start 01/19/22 at 12:30; Stop 01/19/22 at 12:32; Status DC Heparin Sodium (Porcine) (Heparin Sodium) 2,500 unit 1X ONCE IART Last administered on 01/19/22at 12:30; Start 01/19/22 at 12:30; Stop 01/19/22 at 12:32; Status DC Heparin Sodium/ Sodium Chloride (HEPARIN for ARTERIAL LINE FLUSH) 1,000 unit 1X ONCE IART Last administered on 01/19/22at 12:30; Start 01/19/22 at 12:30; Stop 01/19/22 at 12:32; Status DC Midazolam HCl (Versed) 2 mg 1X ONCE IV Last administered on 01/19/22 12:11; Start 01/19/22 at 12:30; Stop 01/19/22 at 12:32; Status DC Fentanyl Citrate (Fentanyl 2ml Vial) 50 mcg 1X ONCE IV Last administered on 01/19/22at 12:11; Start 01/19/22 at 12:30; Stop 01/19/22 at 12:32; Status DC Iodixanol (Visipaque 320) 100 ml 1X ONCE IART Last administered on 01/19/22at 12:30; Start 01/19/22 at 12:30; Stop 01/19/22 at 12:32; Status DC Lidocaine HCl (Xylocaine-Mpf 1% 2ml Vial) 2 ml 1X ONCE INJ Last administered on 01/19/22at 12:30; Start 01/19/22 at 12:30; Stop 01/19/22 at 12:32; Status DC Active Scripts Active Ondansetron Hcl 4 Mg Tablet 1 Tab PO PRN Q6HRS PRN 3 Days Cipro (Ciprofloxacin Hcl) 500 Mg Tablet 1 Tab PO BID 7 Days Zofran Odt (Ondansetron) 4 Mg Tab.rapdis 1 Tab SL Q8HRS Cipro (Ciprofloxacin Hcl) 500 Mg Tablet 1 Tab PO BID ROS: Review of Systems Review of System Unless noted in HPI 14 point review systems is negative Physical Exam: Vital Signs: Vital Signs Date Time Temp Pulse Resp B/P (MAP) Pulse Ox O2 Delivery O2 Flow Rate FiO2 01/19/22 12:39 57 24 100 Nasal Cannula 2.0 01/19/22 10:54 97.5 135/64 (87) 97.5 Physcial Exam: GEN: No apparent distress. Alert and oriented HEENT: Normal cephalic, atraumatic, external auditory canals are patent EYES: Extraocular muscles are intact, pupil are equally round and reactive to light and accommodation MUSCULOSKELETAL: Well developed , well nourished, good range of motion ENDOCRINE: No thyromegaly was palpated LYMPHATICS: No cervical chain or axillary nodes were noted HEMATOPOIETIC: No bruising NECK: Supple, no JVD, no thyromegaly was noted LUNGS: Clear to auscultation in all lung sanchez without rhonchi or wheezing HEART: RRR, S!, S2 present. Peripheral pulses intact, no obvious murmurs noted ABDOMEN: Soft, nontender. Positive bowel sounds, no organomegaly, normal bowel sounds EXTREMITIES: Without clubbing, cyanosis, or edema. Pedal pulses intact. Negative Homans sign NEUROLOGIC: Normal speech and tone. A&O x 3, moves all extremities, no obvious focal deficits PSYCHIATRIC: Normal affect, normal mood. Stable SKIN: No ulcerations or rashes, good skin turgor, no jaundice VASCULAR: Good capillary refill, neurovascular bundle appears to be intact Labs: Labs: Laboratory Tests Test 01/19/22 03:59 01/19/22 07:05 01/19/22 10:00 White Blood Count 8.1 x10^3/uL (4.0-11.0) Red Blood Count 3.91 x10^6/uL (3.50-5.40) Hemoglobin 11.5 g/dL (12.0-15.5) Hematocrit 34.0 % (36.0-47.0) Mean Corpuscular Volume 87 fL (79-100) Mean Corpuscular Hemoglobin 30 pg (25-35) Mean Corpuscular Hemoglobin Concent 34 g/dL (31-37) Red Cell Distribution Width 14.9 % (11.5-14.5) Platelet Count 216 x10^3/uL (140-400) Neutrophils (%) (Auto) 69 % (31-73) Lymphocytes (%) (Auto) 23 % (24-48) Monocytes (%) (Auto) 6 % (0-9) Eosinophils (%) (Auto) 2 % (0-3) Basophils (%) (Auto) 1 % (0-3) Neutrophils # (Auto) 5.6 x10^3/uL (1.8-7.7) Lymphocytes # (Auto) 1.8 x10^3/uL (1.0-4.8) Monocytes # (Auto) 0.5 x10^3/uL (0.0-1.1) Eosinophils # (Auto) 0.1 x10^3/uL (0.0-0.7) Basophils # (Auto) 0.0 x10^3/uL (0.0-0.2) Prothrombin Time 13.0 SEC (11.7-14.0) Prothromb Time International Ratio 1.0 (0.8-1.1) Activated Partial Thromboplast Time 28 SEC (24-38) Sodium Level 138 mmol/L (136-145) Potassium Level 3.5 mmol/L (3.5-5.1) Chloride Level 101 mmol/L (98-107) Carbon Dioxide Level 29 mmol/L (21-32) Anion Gap 8 (6-14) Blood Urea Nitrogen 12 mg/dL (7-20) Creatinine 0.7 mg/dL (0.6-1.0) Estimated GFR (Cockcroft-Gault) 90.9 BUN/Creatinine Ratio 17 (6-20) Glucose Level 109 mg/dL (70-99) Calcium Level 8.4 mg/dL (8.5-10.1) Total Bilirubin 0.4 mg/dL (0.2-1.0) Aspartate Amino Transf (AST/SGOT) 14 U/L (15-37) Alanine Aminotransferase (ALT/SGPT) 51 U/L (14-59) Alkaline Phosphatase 67 U/L (46-116) Troponin I High Sensitivity 212 ng/L (4-50) 625 ng/L (4-50) 980 ng/L (4-50) WG-Gig-I-Type Natriuretic Peptide 114 pg/mL (0-124) Total Protein 6.5 g/dL (6.4-8.2) Albumin 3.4 g/dL (3.4-5.0) Albumin/Globulin Ratio 1.1 (1.0-1.7) Serum Test, Qualitative Negative (NEG) Triglycerides Level 228 mg/dL (0-150) Cholesterol Level 123 mg/dL (0-200) LDL Cholesterol, Calculated 47 mg/dL (0-100) VLDL Cholesterol, Calculated 46 mg/dL (0-40) Non-HDL Cholesterol Calculated 93 mg/dL (0-129) HDL Cholesterol 30 mg/dL (40-60) Cholesterol/HDL Ratio 4.1 Laboratory Tests Test 01/19/22 03:59 01/19/22 07:05 01/19/22 10:00 White Blood Count 8.1 x10^3/uL (4.0-11.0) Red Blood Count 3.91 x10^6/uL (3.50-5.40) Hemoglobin 11.5 g/dL (12.0-15.5) Hematocrit 34.0 % (36.0-47.0) Mean Corpuscular Volume 87 fL (79-100) Mean Corpuscular Hemoglobin 30 pg (25-35) Mean Corpuscular Hemoglobin Concent 34 g/dL (31-37) Red Cell Distribution Width 14.9 % (11.5-14.5) Platelet Count 216 x10^3/uL (140-400) Neutrophils (%) (Auto) 69 % (31-73) Lymphocytes (%) (Auto) 23 % (24-48) Monocytes (%) (Auto) 6 % (0-9) Eosinophils (%) (Auto) 2 % (0-3) Basophils (%) (Auto) 1 % (0-3) Neutrophils # (Auto) 5.6 x10^3/uL (1.8-7.7) Lymphocytes # (Auto) 1.8 x10^3/uL (1.0-4.8) Monocytes # (Auto) 0.5 x10^3/uL (0.0-1.1) Eosinophils # (Auto) 0.1 x10^3/uL (0.0-0.7) Basophils # (Auto) 0.0 x10^3/uL (0.0-0.2) Prothrombin Time 13.0 SEC (11.7-14.0) Prothromb Time International Ratio 1.0 (0.8-1.1) Activated Partial Thromboplast Time 28 SEC (24-38) Sodium Level 138 mmol/L (136-145) Potassium Level 3.5 mmol/L (3.5-5.1) Chloride Level 101 mmol/L (98-107) Carbon Dioxide Level 29 mmol/L (21-32) Anion Gap 8 (6-14) Blood Urea Nitrogen 12 mg/dL (7-20) Creatinine 0.7 mg/dL (0.6-1.0) Estimated GFR (Cockcroft-Gault) 90.9 BUN/Creatinine Ratio 17 (6-20) Glucose Level 109 mg/dL (70-99) Calcium Level 8.4 mg/dL (8.5-10.1) Total Bilirubin 0.4 mg/dL (0.2-1.0) Aspartate Amino Transf (AST/SGOT) 14 U/L (15-37) Alanine Aminotransferase (ALT/SGPT) 51 U/L (14-59) Alkaline Phosphatase 67 U/L (46-116) Troponin I High Sensitivity 212 ng/L (4-50) 625 ng/L (4-50) 980 ng/L (4-50) ZI-Yuj-E-Type Natriuretic Peptide 114 pg/mL (0-124) Total Protein 6.5 g/dL (6.4-8.2) Albumin 3.4 g/dL (3.4-5.0) Albumin/Globulin Ratio 1.1 (1.0-1.7) Serum Test, Qualitative Negative (NEG) Triglycerides Level 228 mg/dL (0-150) Cholesterol Level 123 mg/dL (0-200) LDL Cholesterol, Calculated 47 mg/dL (0-100) VLDL Cholesterol, Calculated 46 mg/dL (0-40) Non-HDL Cholesterol Calculated 93 mg/dL (0-129) HDL Cholesterol 30 mg/dL (40-60) Cholesterol/HDL Ratio 4.1 Assessment/Plan Assessment/Plan Chest pain secondary to NSTEMI history hyperlipidemia -Presented with couple week history of chest pain worsening overnight -Troponins notably elevated -Heparin drip started to continue this received 324 aspirin -Cardiology consulted planning for Vibrator Equipment Tester -N.p.o. -We will follow-up with patient after procedure -Discussed with cardiology team -Discussed with bedside RN Justifications for Admission Other Justification MATTHEW MAURICIO MD Jan 19, 2022 12:53
--- NOTE | 2022-01-19 16:35 | CARD ---
MR#: [id number] Date of Study: 01/19/2022 Ordering Physician: JONH HOLT, Referring Physician: JONH HOLT, Tech: RT Estephania(R) APPROVED REPORT Technologist: Suzy Toro RT(R) Nurse: Estelle Gregorio RN Procedure(s) performed: Left heart catheterization, selective coronary angiography and left ventricul ography via right transradial approach MODERATE SEDATION TIME: 28 MINUTES FLUORO TIME: 5.9 MIN DOSE: 62.3 GYCM2 CONTRAST: 82CC VISI INDICATION The indication(s) include : non-STEMI . [facility] Clinical Frailty Scale [facility] Clinical Frailty Scale: Mildly Frail Heart Failure Heart Failure: No CASE TECHNIQUE IV conscious sedation was used throughout procedure with appropriate monitoring and was performed in the presence of a registered nurse who was an independent trained observer other than the physician p erforming the procedure. During this case, Fluoroscopy and low osmolar contrast were used for imaging . Specimen(s) Removed: No Estimated Blood loss: 15 cc's. PROCEDURE NARRATIVE After explaining the risks, benefits and alternative options, informed consent was obtained from alexander ent. Patient was brought to the cardiac Recording Studio Setup Worker and right wrist was prepped and draped in the usual fashion after confirming a positive modified Chavez's test. Arterial access was obtained in the righ t radial artery and a 6 Bahraini sheath was inserted. 6 [place]i JL 3.5 and 6 [place]i JR4 catheters were used to perform selective angiography of the left and right coronary arteries after initial attempts to engage these vessels using 6 [place]i Honorio catheter. Successful. 6 [place]raini pigtail catheter was us ed to perform left ventriculography. Patient tolerated the procedure well. Hemostasis was achieved using TR band. There were no immediate complications. The following findings were noted. FINDINGS 1. Hemodynamics: Left ventricular end-diastolic pressure of 16 mmHg. No pullback gradient across th e aortic valve. 2. Left ventriculography: Mild left ventricular systolic dysfunction with ejection fraction estimate d at 45 to 50%. No significant mitral regurgitation seen. 3. Coronary angiography: a. The left main coronary artery arose from the left sinus of Valsalva, gave rise to the left anteri or descending and left circumflex arteries and did not show any significant stenosis. b. The left anterior descending artery did not show any significant stenosis. c. The left circumflex artery did not show any significant stenosis. d. The right coronary artery was a large and dominant vessel arising from the right sinus of Valsalv a that did not show any significant stenosis. Conclusion 1. No significant coronary artery disease 2. Mild left ventricle systolic dysfunction with ejection fraction estimated at 45 to 50% Recommendations Medical Therapy Signed by : Basilio Roman, Electronically Approved : 01/19/2022 16:34:26
[2022-01-19] MEDS ORDERED: ATORVASTATIN CALCIUM 20 MG TABLET PO SCH (21:00)
[2022-01-19] MEDS: SENNOSIDES/DOCUSATE 8.6/50MG TABLET. PO SCH (21:15)
[2022-01-20 02:17] VITALS: BP 143/78
[2022-01-20 06:35] LABS: CALCIUM 8.6 mg/dL (8.5-10.1); CREATININE 0.6 mg/dL (0.6-1.0); GFR 108.6; POTASSIUM 3.4 mmol/L (3.5-5.1)
[2022-01-20 07:08] LABS: BASO % 0 % (0-3); EOS # 0.1 x10^3/uL (0.0-0.7); EOS % 2 % (0-3); HEMATOCRIT 32.5 % (36.0-47.0); HEMOGLOBIN 11.3 g/dL (12.0-15.5); LYMPH # 1.5 x10^3/uL (1.0-4.8); LYMPH % 24 % (24-48); MEAN CORPUSCULAR HEMOGLOBIN 30 pg (25-35); MEAN CORPUSCULAR HGB CONC 35 g/dL (31-37); MEAN CORPUSCULAR VOLUME 88 fL (79-100); MONO # 0.3 x10^3/uL (0.0-1.1); MONO % 5 % (0-9); NEUT # 4.4 x10^3/uL (1.8-7.7); NEUT % 69 % (31-73); PLATELET COUNT 200 x10^3/uL (140-400); RED CELL DISTRIBUTION WIDTH 14.6 % (11.5-14.5); WHITE BLOOD COUNT 6.5 x10^3/uL (4.0-11.0)
[2022-01-20] MEDS ORDERED: ASPIRIN ENTERIC COATED 81 MG TABLET.DR. PO SCH (08:00)
[2022-01-20] MEDS: SENNOSIDES/DOCUSATE 8.6/50MG TABLET. PO SCH (08:04)
--- NOTE | 2022-01-20 10:19 | PDOC ---
YANETJONH GARCIA MARIUM 01/20/22 1019: CARDIO Progress Notes Date and Time Date of Service 01/20/22 Time of Evaluation 1015 Subjective Subjective: No Chest Pain, No shortness of breath, No Palpitations Vitals Vitals Vital Signs Date Time Temp Pulse Resp B/P (MAP) Pulse Ox O2 Delivery O2 Flow Rate FiO2 01/20/22 08:00 Room Air 2.0 01/20/22 02:17 98.0 65 18 143/78 (99) 96 98.0 Weight Weight [ ] Input and Output Intake and Output Intake and Output 01/20/22 07:00 Intake Total 420 ml Output Total 1950 ml Balance -1530 ml Intake Oral 420 ml Output Urine Total 1950 ml # Voids 1 Laboratory Labs Laboratory Tests Test 01/20/22 05:25 White Blood Count 6.5 x10^3/uL (4.0-11.0) Red Blood Count 3.70 x10^6/uL (3.50-5.40) Hemoglobin 11.3 g/dL (12.0-15.5) Hematocrit 32.5 % (36.0-47.0) Mean Corpuscular Volume 88 fL (79-100) Mean Corpuscular Hemoglobin 30 pg (25-35) Mean Corpuscular Hemoglobin Concent 35 g/dL (31-37) Red Cell Distribution Width 14.6 % (11.5-14.5) Platelet Count 200 x10^3/uL (140-400) Neutrophils (%) (Auto) 69 % (31-73) Lymphocytes (%) (Auto) 24 % (24-48) Monocytes (%) (Auto) 5 % (0-9) Eosinophils (%) (Auto) 2 % (0-3) Basophils (%) (Auto) 0 % (0-3) Neutrophils # (Auto) 4.4 x10^3/uL (1.8-7.7) Lymphocytes # (Auto) 1.5 x10^3/uL (1.0-4.8) Monocytes # (Auto) 0.3 x10^3/uL (0.0-1.1) Eosinophils # (Auto) 0.1 x10^3/uL (0.0-0.7) Basophils # (Auto) 0.0 x10^3/uL (0.0-0.2) Sodium Level 139 mmol/L (136-145) Potassium Level 3.4 mmol/L (3.5-5.1) Chloride Level 103 mmol/L (98-107) Carbon Dioxide Level 30 mmol/L (21-32) Anion Gap 6 (6-14) Blood Urea Nitrogen 9 mg/dL (7-20) Creatinine 0.6 mg/dL (0.6-1.0) Estimated GFR (Cockcroft-Gault) 108.6 Glucose Level 100 mg/dL (70-99) Calcium Level 8.6 mg/dL (8.5-10.1) Physical Exam HEENT: Neck Supple W Full Motion Chest: Symmetric LUNGS: Clear to Auscultation Heart: RRR Abdomen: Soft N/T Extremities: No Edema, Other (right radial arteriotomy site soft, clean, and dry. No hematoma present. neurovascular status intact ) Neurology: alert, oriented, follow commands Assessment Assessment 1. Chest pain; LHC did not show any significant CAD 2. NSTEMI 3. Mild non-ischemic cardiomyopathy; LV systolic dysfunction with EF estimated at 45 to 50% per LHC. 3. Hyperlipidemia 4. Obesity Recommendations Echo pending ASA, statin therapy Add lisinopril No BB with mild bradycardia Supportive care Outpatient followup. Our contact information was provided Justicifation of Admission Dx: Justifications for Admission: Justification of Admission Dx: N/A DOMINIC SONG MD 01/20/22 1701: CARDIO Progress Notes Assessment Assessment Patient seen and examined. Agree with MOTOR POOL CLERK's assessment and plan. Non-STEMI with cardiac catheterization not showing any significant coronary artery disease LVEF 45 to 50% on left ventriculogram Agree with holding beta-neville secondary to bradycardia Follow-up as scheduled JONH HOLT APRN Jan 20, 2022 10:19 DOMINIC SONG MD Jan 20, 2022 17:01
[2022-01-20 11:00] VITALS: BP 137/64
[2022-01-20 11:13] VITALS: BP 137/64
[2022-01-20] MEDS ORDERED: LISINOPRIL 5 MG TABLET. PO SCH (11:30)
[2022-01-20] MEDS ORDERED: ATOR20TA58 PO (11:50)
[2022-01-20] MEDS ORDERED: ASPI-886 PO (11:50)
[2022-01-20] MEDS ORDERED: LISI5TAB15 PO (11:50)
--- NOTE | 2022-01-20 13:15 | NUR ---
Discharge Note: [facility] Discharge instructions and discharge home medications reviewed with Patient and a copy given. All questions have been answered and understanding verbalized. The following instructions and handouts were given: Post cath care and follow up Discontinued lines and drains: Both IV's and hall monitor removed Patient discharged to home with family
--- NOTE | 2022-01-20 17:53 | CARD ---
MR#: [id number] Date of Study: 01/20/2022 Ordering Physician: JONH HOLT, Referring Physician: JONH HOLT, Tech: Jessica Enriquez [facility] APPROVED REPORT EXAM: Two-dimensional and M-mode echocardiogram with Doppler and color Doppler. Other Information Quality : AverageHR: 56bpm Rhythm : NSR INDICATION Chest Pain 2D DIMENSIONS RVDd3.4 (2.9-3.5cm)Left Atrium(2D)5.3 (1.6-4.0cm) IVSd1.3 (0.7-1.1cm)Aortic Root(2D)3.3 (2.0-3.7cm) LVDd5.3 (3.9-5.9cm)LVOT Diameter2.3 (1.8-2.4cm) PWd1.2 (0.7-1.1cm)LVDs3.3 (2.5-4.0cm) FS (%) 38.1 %SV90.7 ml Aortic Valve AoV Peak Santiago.159.4cm/sAoV VTI36.1cm AO Peak GR.10.2mmHgLVOT Peak Santiago.94.3cm/s AO Mean GR.5mmHgAVA (VMAX)2.43cm2 Mitral Valve MV E Zdkeriid88.6cm/sMV DECEL SIYU415lo MV A Yquujvnn22.5cm/sE/A Ratio1.0 Pulmonary Valve PV Peak Igmpznxp463.5cm/s Tricuspid Valve TR P. Amlcmmku920pe/sTR Peak Gr.15mmHg LEFT VENTRICLE The left ventricle is normal size. There is borderline concentric left ventricular hypertrophy. The l eft ventricular systolic function is normal and the ejection fraction is within normal range. LV eje ction fraction is 50 to 55%. There is normal LV segmental wall motion. The left ventricular diastolic function and filling is normal for age. RIGHT VENTRICLE The right ventricle is normal size. There is normal right ventricular wall thickness. The right ventr icular systolic function is normal. ATRIA The left atrium size is normal. The right atrium size is normal. The interatrial septum is intact wit h no evidence for an atrial septal defect or patent foramen ovale as noted on 2-D or Doppler imaging. AORTIC VALVE The aortic valve is normal in structure and function. Doppler and Color Flow revealed no significant aortic regurgitation. There is no significant aortic valvular stenosis. MITRAL VALVE The mitral valve is normal in structure and function. There is no evidence of mitral valve prolapse. There is no mitral valve stenosis. Doppler and Color-flow revealed trace mitral regurgitation. TRICUSPID VALVE The tricuspid valve is normal in structure and function. Doppler and Color Flow revealed trace tricus pid regurgitation. Estimated PAP 20 mmHg. There is no tricuspid valve stenosis. PULMONIC VALVE The pulmonary valve is normal in structure and function. Doppler and Color Flow revealed no pulmonic valvular regurgitation. GREAT VESSELS The aortic root is normal in size. The ascending aorta is normal in size. The IVC is normal in size a nd collapses >50% with inspiration. PERICARDIAL EFFUSION There is no evidence of significant pericardial effusion. Critical Notification Critical Value: No <Conclusion> The left ventricle is normal size. The left ventricular systolic function is normal and the ejection fraction is within normal range. LV ejection fraction is 50 to 55%. There is borderline concentric left ventricular hypertrophy. Doppler and Color Flow revealed no significant aortic regurgitation. There is no significant aortic valvular stenosis. Doppler and Color-flow revealed trace mitral regurgitation. Doppler and Color Flow revealed trace tricuspid regurgitation. Estimated PAP 20 mmHg. Signed by : Ernesto Solis MD Electronically Approved : 01/20/2022 17:52:25
--- NOTE | 2022-01-20 22:29 | PDOC3 ---
[facility] Summary Date of Admission: Date of Admission: Jan 19, 2022 Date of Discharge: Date of Discharge: Jan 20, 2022 Admission Diagnosis: Admitting Diagnosis: nstemi Consults: Consults: cardiology Procedures: Procedures: CATH 01/19 FINDINGS 1. Hemodynamics: Left ventricular end-diastolic pressure of 16 mmHg. No pullb ack gradient across the aortic valve. 2. Left ventriculography: Mild left ventricular systolic dysfunction with ejection fraction estimated at 45 to 50%. No significant mitral regurgitation seen. 3. Coronary angiography: a. The left main coronary artery arose from the left sinus of Valsalva, gave rise to the left anterior descending and left circumflex arteries and did not show any significant stenosis. b. The left anterior descending artery did not show any significant stenosis. c. The left circumflex artery did not show any significant stenosis. d. The right coronary artery was a large and dominant vessel arising from the r ight sinus of Valsalva that did not show any significant stenosis. Conclusion 1. No significant coronary artery disease 2. Mild left ventricle systolic dysfunction with ejection fraction estimated at 45 to 50% Hospital Course: Hospital Course: Chest pain secondary to NSTEMI history hyperlipidemia -Presented with couple week history of chest pain worsening overnight -Troponins notably elevated -Heparin drip started to continue this received 324 aspirin -Cardiology consulted planning for [employer] -N.p.o. -We will follow-up with patient after procedure -Discussed with cardiology team -Discussed with bedside RN 01/20 Evaluated examined at bedside. No complaints. Cardiac cath and echo reviewed. Discussed with cardiology team. Okay to discharge home today. Follow-up outpatient as needed. Greater than 30 minutes spent on discharge. 19 minutes of advance care planning. 01/19 The patient is a 46-year-old female with a history of hyperlipidemia and morbid obesity. She is a non-smoker and has no known cardiac history. She presents for evaluation of retrosternal nonreproducible chest discomfort with onset at 1 AM, about 2 hours prior to arrival, awakening her from sleep. Discomfort radiates to the interscapular back into the bilateral arms. Severity 8 out of 10 at present. Discomfort is nonexertional nonpleuritic. Nothing seems to make it better or worse. Patient had an episode of identical discomfort 2 weeks ago which she managed at home with Tylenol and for which she did not seek care. This resolved after about a day. Associated nausea without vomiting. No associated fevers, upper respiratory congestion/rhinorrhea, cough, sore throat, shortness of breath, abdominal pain of any kind, flank pain, dysuria, hematuria, polyuria or oliguria, changes in bowel habits, pain or swelling to arms or legs. Was reporting ongoing chest pain when seen at bedside. Troponins elevated cardiology consulted Disposition: Disposition/Orders: D/C to Home Activity: Activity: Resume previous activity Diet: Diet: Cardiac Medications: Home Meds Active Scripts Aspirin (ASPIRIN EC) 81 Mg Tablet.dr, 81 MG PO DAILYWBKFT for cad for 30 Days, #30 TAB.SR Prov:MATTHEW MAURICIO MD 01/20/22 Lisinopril (LISINOPRIL) 5 Mg Tablet, 5 MG PO DAILY for htn for 30 Days, #30 TAB Prov:MATTHEW MAURICIO MD 01/20/22 Atorvastatin Calcium (ATORVASTATIN CALCIUM) 20 Mg Tablet, 20 MG PO QHS for hpld for 30 Days, #30 TAB Prov:MATTHEW MAURICIO MD 01/20/22 Ondansetron Hcl (ONDANSETRON HCL) 4 Mg Tablet, 1 TAB PO PRN Q6HRS PRN for NAUSEA/VOMITING for 3 Days, #10 TAB 0 Refills Prov:LEXX CLARKE APRN 04/06/20 Ondansetron (ZOFRAN ODT) 4 Mg Tab.rapdis, 1 TAB SL Q8HRS, #15 TAB Prov:YASMINE BURNETT MD 02/28/18 Discontinued Scripts Ciprofloxacin Hcl (CIPRO) 500 Mg Tablet, 1 TAB PO BID for 7 Days, #14 TAB 0 Refills Prov:LEXX CLARKE APRN 04/06/20 Ciprofloxacin Hcl (CIPRO) 500 Mg Tablet, 1 TAB PO BID, #10 TAB Prov:YASMINE BURNETT MD 02/28/18 Scheduled Aspirin (Aspirin Ec), 81 MG PO DAILYWBKFT Atorvastatin Calcium (Atorvastatin Calcium), 20 MG PO QHS Lisinopril (Lisinopril), 5 MG PO DAILY Ondansetron (Zofran Odt), 1 TAB SL Q8HRS Scheduled PRN Ondansetron Hcl (Ondansetron Hcl), 1 TAB PO PRN Q6HRS PRN for NAUSEA/VOMITING Discontinued Medications Ciprofloxacin Hcl (Cipro), 1 TAB PO BID Ciprofloxacin Hcl (Cipro), 1 TAB PO BID Justicifation of Admission Dx: Justifications for Admission: Justification of Admission Dx: N/A MATTHEW MAURICIO MD Jan 20, 2022 22:29
== END 2022-01-20 12:40 | disposition home or self-care (01) | DRG 281 ==
LOC: ER 03:39 → 6 SOUTH 04:41
PROVIDERS: ADMIT Student in an Organized Health Care Education/Training Program; ATTEND Student in an Organized Health Care Education/Training Program
PROC: 4A023N7 Measurement of Cardiac Sampling and Pressure, Left Heart, Percutaneous Approach (ICD-10-PCS; principal; 2022-01-19)
PROC: B2111ZZ Fluoroscopy of Multiple Coronary Arteries using Low Osmolar Contrast (ICD-10-PCS; 2022-01-19)
PROC: B2151ZZ Fluoroscopy of Left Heart using Low Osmolar Contrast (ICD-10-PCS; 2022-01-19)
DX: I21.4 Non-ST elevation (NSTEMI) myocardial infarction (principal); I42.8 Other cardiomyopathies; Z68.41 Body mass index [BMI] 40.0-44.9, adult; E78.5 Hyperlipidemia, unspecified; Z82.49 Family history of ischemic heart disease and other diseases of the circulatory system; E66.01 Morbid (severe) obesity due to excess calories; M19.90 Unspecified osteoarthritis, unspecified site
CPT/HCPCS: 36415; 71275; 80048; 80053; 80061; 83880; 84484; 84703; 85025; 85610; 85730; 93005; 93306; 93458; 96361; 96374; 96375; 96376; 99152; 99153; C1894; J1644; J2250; J2270; J2405; J3010; J3490; J7030; Q9967; 99291-25; C8929; G0378